=== PATIENT | male | born 2000 | race Caucasian/White ===

== ENCOUNTER 2021-10-21 09:41 | Emergency (ER) | payer OTHER ==
[2021-10-21] MEDS ORDERED: predniSONE 20 MG TAB ONE (10:45)
[2021-10-21] MEDS ORDERED: Ketorolac Tromethamine 30 MG/ML VIAL ONE (10:45)
[2021-10-21] MEDS ORDERED: Cyclobenzaprine 10 MG TAB ONE (10:45)
== END 2021-10-21 10:56 | disposition home or self-care (01) ==
LOC: CSHERS 09:41
DX: M94.0 Chondrocostal junction syndrome [Tietze] (principal); K21.9 Gastro-esophageal reflux disease without esophagitis
CPT/HCPCS: 71045; 93005; 96374; J1885; J7512